=== PATIENT | female | born 1960 | race Hispanic/Latino ===

== ENCOUNTER 2018-02-08 07:46 | Emergency (ER) | payer OTHER, SELFPAY ==
[2018-02-08 08:02] VITALS: BP 153/88; PULSE 70; RESP 16; TEMP 36.2; O2SAT 100; BMI 36.3
--- NOTE | 2018-02-08 08:11 | ED.FEMALEGU ---
HPI - Female Genitourinary General Chief complaint: Vaginal Bleeding Stated complaint: vaginal bleeding Time Seen by Provider: 02/08/18 07:50 Source: patient Mode of arrival: ambulatory Limitations: no limitations History of Present Illness HPI Narrative: Pleasant 57-year-old female presents with her sister and chief complaint of painless vaginal bleeding over the past few days. She has not had a menstrual cycle in over a year and started again last Friday. She denies the passage of any large clots and states the bleeding is minimal and she notes that most with urinating. She denies any pain, other discharge or fever or chills. She denies dysuria, frequency or urgency. She has multiple sisters who went through menopause in her late 30s to early 40s. Patient did start thyroid meds few months ago but otherwise denies any new medications. She was evaluated at her primary care office on Friday and is hoping for 2nd opinion or clarification prior to leaving on a trip out of state later this week. She states she has only changing about 1 pad per day. MD Complaint: vaginal bleeding Onset (ago): day(s) Severity: mild Exacerbating factors: none Urinary symptoms: Hematuria Vaginal discharge: dark blood Associated symptoms: denies other symptoms Related Data Home Medications Medication Instructions Recorded Confirmed levothyroxine 75 mcg PO DAILY 02/08/18 02/08/18 Allergies Allergy/AdvReac Type Severity Reaction Status Date / Time No Known Drug Allergies Allergy Verified 02/08/18 08:58 Review of Systems Review of Systems All systems reviewed & are unremarkable except as noted in HPI and below Constitutional Denies chills, Denies fever(s), Denies lethargy and Denies weakness Eyes Denies change in vision, Denies eye discharge, Denies irritation and Denies loss of vision ENT Ears, Nose, Mouth, and Throat: Denies change in voice, Denies neck pain and Denies sore throat Cardiovascular Denies chest pain, Denies irregular heart rhythm, Denies lightheadedness, Denies palpitations, Denies dyspnea, Denies dyspnea on exertion and Denies orthopnea Respiratory Denies cough, Denies dyspnea, Denies dyspnea on exertion and Denies wheezing Gastrointestinal Gastrointestinal: Denies abdominal pain, Denies change in bowel habits, Denies diarrhea, Denies nausea and Denies vomiting Genitourinary Reports abnormal vaginal bleeding, Denies hematuria, Denies flank pain, Denies urinary incontinence and Denies urinary urgency Musculoskeletal Denies neck pain Integumentary/Breasts Denies pruritus, Denies erythema, Denies rash and Denies wounds Neurologic Denies confusion, Denies loss of vision and Denies weakness Psychiatric Denies anxiety, Denies confusion, Denies depression, Denies homicidal ideation and Denies suicidal ideation Endocrine Denies palpitations Hematologic/Lymphatic Denies easy bruising Allergic/Immunologic Denies wheezing [facility] Social History Smoking Status: Never smoker Exam Narrative Exam Narrative: GEN: AOx3 and in mild distress EYES: Pupils are equal, round, and reactive to light and accommodation. Extraoccular muscles are intact bilaterally. There is no subconjunctival hemorrhage or exudate. CHEST: Lungs are clear to auscultation bilaterally and free of wheezes, rales, or rhonchi. Heart rate is regular rhythm, there are no murmurs, clicks, rubs, or gallops. There is no chest wall tenderness. ABD: Abdomen is soft and nontender. There is no guarding or rebound. Bowel sounds are normal in all 4 quadrants. There is no mass or organomegaly. PELVIC: Performed with patient's permission and female nursing title clerk automobile at the bedside. Minimal dark bleeding from a closed cervical os. No abnormal lesions, masses or trauma noted. Bimanual exam notes no masses or tenderness. EXT: Full painless ROM of all extremities with no loss of sensation or strength. SKIN: Warm, pink, and dry. No erythema or rash Initial Vital Signs Initial Vital Signs: Vital Signs Temperature 97.2 F L 02/08/18 08:02 Pulse Rate 70 02/08/18 08:02 Respiratory Rate 16 02/08/18 08:02 Blood Pressure 153/88 H 02/08/18 08:02 Pulse Oximetry 100 02/08/18 08:02 Course Orders Ordered: ED Orders 02/08/18 08:20 US pelvic complete Stat Vital Signs - 8 hr 02/08/18 08:02 02/08/18 08:43 Temperature 97.2 F L Pulse Rate 70 61 Respiratory Rate 16 17 Blood Pressure 153/88 H Blood Pressure [Right Arm] 109/73 Pulse Oximetry 100 96 [facility] - Female Genitourinary Medical Records Attestation: I reviewed the patient's medical records. Lab Data Attestation: I reviewed the patient's lab results. Imaging Data Pelvic US: Radiologist's impression: PROCEDURE: XR ANKLE RT MIN 3V INDICATIONS: ankle injury with Janet lift at [facility] TECHNIQUE: 3 views of the ankle were acquired. COMPARISON: None. FINDINGS: Bones are diffusely osteopenic. Vascular calcifications are noted. Internal fixation hardware along the medial and lateral malleolus are noted, without convincing evidence of acute hardware complication. A fracture lucency persists through the medial malleolus, which appears chronic. No acute fracture or dislocation is identified. IMPRESSION: #1. Right medial and lateral malleoli internal fixation hardware without convincing evidence of acute hardware complication. Chronic-appearing medial malleolar fracture lucency persists. #2. No convincing acute fracture or dislocation of the right ankle. Dictated by: Shane Brice M.D. on 02/08/2018 at 9:53 Approved by: Shane Brice M.D. on 02/08/2018 at 9:55 Discharge Plan Departure Patient Disposition: Home, Self-Care Clinical Impression: Vaginal bleeding, Uterine polyp Discharge Date/Time: 02/08/18 10:26 Interventions: ED Discharge Assessment Last Done: 02/08/18 10:26 Instructions: DI for Vaginal Bleeding Activity Restrictions/Additional Instructions: *You have been diagnosed with [ abnormal vaginal bleeding ] *What to do: *Take medications as directed *Follow up with your primary care provider or OB, call for an appointment. Let them know you were seen in the Emergency Department and that we ask that you be seen in follow up *Return to ER if you should have any new, worsening or concerning symptoms, such as [increased bleeding, such as more than 1 pad per hour for multiple hours. Pain or other bothersome symptoms ] Prescriptions: No Action levothyroxine 75 mcg Tablet 75 mcg PO DAILY RF: 0 Referrals: Vanessa Jimenez MD [Physician] -
--- NOTE | 2018-02-08 08:15 | ED_ITS ---
HPI - Female Genitourinary General Chief complaint: Vaginal Bleeding Stated complaint: vaginal bleeding Time Seen by Provider: 02/08/18 07:50 Source: patient Mode of arrival: ambulatory Limitations: no limitations History of Present Illness HPI Narrative: Pleasant 57-year-old female presents with her sister and chief complaint of painless vaginal bleeding over the past few days. She has not had a menstrual cycle in over a year and started again last Friday. She denies the passage of any large clots and states the bleeding is minimal and she notes that most with urinating. She denies any pain, other discharge or fever or chills. She denies dysuria, frequency or urgency. She has multiple sisters who went through menopause in her late 30s to early 40s. Patient did start thyroid meds few months ago but otherwise denies any new medications. She was evaluated at her primary care office on Friday and is hoping for 2nd opinion or clarification prior to leaving on a trip out of state later this week. She states she has only changing about 1 pad per day. MD Complaint: vaginal bleeding Onset (ago): day(s) Severity: mild Exacerbating factors: none Urinary symptoms: Hematuria Vaginal discharge: dark blood Associated symptoms: denies other symptoms Related Data Home Medications Medication Instructions Recorded Confirmed levothyroxine 75 mcg PO DAILY 02/08/18 02/08/18 Allergies Allergy/AdvReac Type Severity Reaction Status Date / Time No Known Drug Allergies Allergy Verified 02/08/18 08:58 Review of Systems Review of Systems All systems reviewed & are unremarkable except as noted in HPI and below Constitutional Denies chills, Denies fever(s), Denies lethargy and Denies weakness Eyes Denies change in vision, Denies eye discharge, Denies irritation and Denies loss of vision ENT Ears, Nose, Mouth, and Throat: Denies change in voice, Denies neck pain and Denies sore throat Cardiovascular Denies chest pain, Denies irregular heart rhythm, Denies lightheadedness, Denies palpitations, Denies dyspnea, Denies dyspnea on exertion and Denies orthopnea Respiratory Denies cough, Denies dyspnea, Denies dyspnea on exertion and Denies wheezing Gastrointestinal Gastrointestinal: Denies abdominal pain, Denies change in bowel habits, Denies diarrhea, Denies nausea and Denies vomiting Genitourinary Reports abnormal vaginal bleeding, Denies hematuria, Denies flank pain, Denies urinary incontinence and Denies urinary urgency Musculoskeletal Denies neck pain Integumentary/Breasts Denies pruritus, Denies erythema, Denies rash and Denies wounds Neurologic Denies confusion, Denies loss of vision and Denies weakness Psychiatric Denies anxiety, Denies confusion, Denies depression, Denies homicidal ideation and Denies suicidal ideation Endocrine Denies palpitations Hematologic/Lymphatic Denies easy bruising Allergic/Immunologic Denies wheezing [facility] Social History Smoking Status: Never smoker Exam Narrative Exam Narrative: GEN: AOx3 and in mild distress EYES: Pupils are equal, round, and reactive to light and accommodation. Extraoccular muscles are intact bilaterally. There is no subconjunctival hemorrhage or exudate. CHEST: Lungs are clear to auscultation bilaterally and free of wheezes, rales, or rhonchi. Heart rate is regular rhythm, there are no murmurs, clicks, rubs, or gallops. There is no chest wall tenderness. ABD: Abdomen is soft and nontender. There is no guarding or rebound. Bowel sounds are normal in all 4 quadrants. There is no mass or organomegaly. PELVIC: Performed with patient's permission and female nursing manager game at the bedside. Minimal dark bleeding from a closed cervical os. No abnormal lesions, masses or trauma noted. Bimanual exam notes no masses or tenderness. EXT: Full painless ROM of all extremities with no loss of sensation or strength. SKIN: Warm, pink, and dry. No erythema or rash Initial Vital Signs Initial Vital Signs: Vital Signs Temperature 97.2 F L 02/08/18 08:02 Pulse Rate 70 02/08/18 08:02 Respiratory Rate 16 02/08/18 08:02 Blood Pressure 153/88 H 02/08/18 08:02 Pulse Oximetry 100 02/08/18 08:02 Course Orders Ordered: ED Orders 02/08/18 08:20 US pelvic complete Stat Vital Signs - 8 hr 02/08/18 08:02 02/08/18 08:43 Temperature 97.2 F L Pulse Rate 70 61 Respiratory Rate 16 17 Blood Pressure 153/88 H Blood Pressure [Right Arm] 109/73 Pulse Oximetry 100 96 [facility] - Female Genitourinary Medical Records Attestation: I reviewed the patient's medical records. Lab Data Attestation: I reviewed the patient's lab results. Imaging Data Pelvic US: Radiologist's impression: PROCEDURE: XR ANKLE RT MIN 3V INDICATIONS: ankle injury with Janet lift at [facility] TECHNIQUE: 3 views of the ankle were acquired. COMPARISON: None. FINDINGS: Bones are diffusely osteopenic. Vascular calcifications are noted. Internal fixation hardware along the medial and lateral malleolus are noted, without convincing evidence of acute hardware complication. A fracture lucency persists through the medial malleolus, which appears chronic. No acute fracture or dislocation is identified. IMPRESSION: #1. Right medial and lateral malleoli internal fixation hardware without convincing evidence of acute hardware complication. Chronic-appearing medial malleolar fracture lucency persists. #2. No convincing acute fracture or dislocation of the right ankle. Dictated by: Shane Brice M.D. on 02/08/2018 at 9:53 Approved by: Shane Brice M.D. on 02/08/2018 at 9:55 Discharge Plan Departure Patient Disposition: Home, Self-Care Clinical Impression: Vaginal bleeding, Uterine polyp Discharge Date/Time: 02/08/18 10:26 Interventions: ED Discharge Assessment Last Done: 02/08/18 10:26 Instructions: DI for Vaginal Bleeding Activity Restrictions/Additional Instructions: *You have been diagnosed with [ abnormal vaginal bleeding ] *What to do: *Take medications as directed *Follow up with your primary care provider or OB, call for an appointment. Let them know you were seen in the Emergency Department and that we ask that you be seen in follow up *Return to ER if you should have any new, worsening or concerning symptoms , such as [increased bleeding, such as more than 1 pad per hour for multiple hours. Pain or other bothersome symptoms ] Prescriptions: No Action levothyroxine 75 mcg Tablet 75 mcg PO DAILY RF: 0 Referrals: Vanessa Jimenez MD [Physician] -
--- NOTE | 2018-02-08 08:20 | DI.US.S_ITS ---
PROCEDURE: US PELVIC COMPLETE INDICATIONS: abnormal vaginal bleeding, hasn't had cycle in a year TECHNIQUE: Real-time scanning was performed of the pelvic organs, with image documentation. Additional endovaginal scanning was necessary due to incomplete visualization of the adnexal and endometrial structures by transabdominal scanning. COMPARISON: None. FINDINGS: Transabdominal scanning: Limited scanning through the kidneys shows no hydronephrosis. No pathologic free abdominal or pelvic fluid. Endovaginal scanning: Uterus: Uterus measures 11.1 x 5.4 x 3.4 cm. There is a 1.9 x 2.9 x 1.5 cm anterior right uterine intramural fibroid. Endometrial complex measures 5 mm. There is a 2.1 x 1.1 x 0.7 cm endometrial fluid collection. There is a small anterior endometrial echogenic focus that may represent a polyp measuring up to 0.6 cm in size. There are multiple nabothian cysts measuring up to 2.0 cm in size. Ovaries: Not visualized on this exam, obscured by overlying bowel gas. IMPRESSION: #1. 2.9 cm anterior right uterine fibroid. #2. 2.1 cm endometrial fluid collection with possible 0.6 cm endometrial polyp. Recommend follow pelvic ultrasound for further evaluation. Correlation with menstrual history recommended, as is a follow-up pelvic ultrasound with possible sampling as clinically warranted. #3. Ovaries were not visualized on this exam. These preliminary findings were discussed by the cellular tower climber with the ordering provider Dr. Edgar Sellers at 9:40 AM on 02/08/18. Dictated by: Shane Brice M.D. on 02/08/2018 at 9:56 Approved by: Shane Brice M.D. on 02/08/2018 at 10:02
--- NOTE | 2018-02-08 08:33 | PC.NURSE ---
patient ambulated to bathroom and voided. POC done No leukocytes just 3+ blood. MD aware. Ultrasound notified to come in. Patient very relieved after the pelvic exam.
[2018-02-08 08:43] VITALS: BP 109/73; PULSE 61; RESP 17; O2SAT 96
== END 2018-02-08 10:26 | disposition home or self-care (01) ==
PROVIDERS: Emergency Provider Emergency Medicine
DX: N93.9 Abnormal uterine and vaginal bleeding, unspecified (principal); N84.0 Polyp of corpus uteri
CPT/HCPCS: 76830; 76856; 81003; 99283; 99284

== ENCOUNTER 2018-03-19 08:01 | Day surgery (SDC) | payer OTHER, SELFPAY ==
[2018-03-19 08:28] VITALS: BP 112/78; PULSE 78; RESP 18; TEMP 36.2; O2SAT 97
[2018-03-19] MEDS: SODIUM CHLORIDE 0.9% 1,000 ML 200 ML IV (08:32)
[2018-03-19] MEDS: fentaNYL 250 MCG/5 ML INJ IV (09:51)
[2018-03-19] MEDS: MIDAZOLAM 5 MG/5 ML VIAL IV (09:52)
[2018-03-19 10:03] VITALS: BP 108/74; PULSE 66; RESP 16; TEMP 36.7; O2SAT 95
[2018-03-19 10:06] VITALS: BP 107/72; PULSE 70; RESP 10; O2SAT 98
--- NOTE | 2018-03-19 10:07 | PM.OP.1 ---
Operative Date/Time/Diagnoses Date of procedure: 03/19/18 Time of procedure: 10:07 Pre-op diagnosis: Screening Post-op diagnosis: same Procedure & Clinicians Procedure: Colonoscopy to the cecum Same procedure as scheduled: Yes Indications: No prior colonoscopy Surgeon: Belle Childress Anesthesia Type: Sedation (Versed 5 mg fentanyl 150 mcg) Operative Notes Findings: 1. Excellent prep 2. No polyps or mass lesions 3. No AV malformations 4. Mild sigmoid diverticulosis without inflammation 5. Grade 1 internal hemorrhoids 6. Normal colonoscopy for age Closure Type: not applicable Procedure in detail: After obtaining informed consent, the patient was brought to the GI suite and placed in the left lateral decubitus position on the examination table. After placement of appropriate monitors, the patient was given incremental doses of Versed and Fentanyl until an appropriate level of sedation was achieved. A time out was held per SCOAP protocol. A digital rectal examination was performed and did not reveal any masses or obstructing lesions. The colonoscope was gently passed into the patient's anus and the entire colon navigated to the level of the cecum with minimal difficulty. Once in the cecum, the scope was withdrawn being sure to go before and beyond all mucosal folds and prominences and get an excellent examination. The findings are noted above. At the level of the rectal vault, the scope was retroflexed and the internal anal canal was examined. The scope was straightened and air aspirated from the colon. The instrument was removed from the patient's body and the procedure was concluded. The patient was allowed to awaken from sedation without difficulty and taken to the post-anesthesia care unit in good condition. Total sedation time 23 min Total withdrawal time 8 min Complications: none Condition: stable Disposition: PACU Plan for aftercare: 1. Discharge to home 2. Plan for next colonoscopy in 10 years or as clinically indicated
--- NOTE | 2018-03-19 10:09 | PM.HP.1 ---
History of Present Illness Date Patient Seen: 03/19/18 Time Patient Seen: 10:09 Chief complaint: [id number] Narrative: Very pleasant 57-year-old lady here for her 1st screening colonoscopy. Denies any problems or symptoms related to function with GI tract. She reports that she was recently diagnosed with hypothyroidism and has been working very hard to be healthy and control her weight. Patient History Family & Social History Family History: Reviewed 03/19/18 by Belle Childress MD Tobacco & Substance use: Smoking Status Never smoker alcohol intake frequency holiday/special occasion Substance Use Type does not use Meds Home Medications Medication Instructions Recorded Confirmed Type levothyroxine 75 mcg PO DAILY 02/08/18 03/19/18 History Allergies Allergy/AdvReac Type Severity Reaction Status Date / Time No Known Drug Allergies Allergy Verified 02/08/18 08:58 Review of Systems Review of Systems All systems reviewed & are unremarkable except as noted in HPI and below Exam Vital Signs (past 8 hours): - 03/19/18 08:28 03/19/18 10:03 Temperature 97.2 F L 98.1 F Pulse Rate 78 66 Respiratory Rate 18 16 Blood Pressure 112/78 108/74 Pulse Oximetry 97 95 Oxygen Delivery Method Room Air Narrative Exam Narrative: Very pleasant well-nourished well-developed lady in no distress HEENT: Normocephalic and atraumatic, pupils equal round reactive to light accommodation with anicteric sclera Lungs: Clear bilaterally Heart: Regular rate and rhythm Abdomen: Soft, nontender, active bowel sounds Extremities: Warm well perfused Assessment & Plan Plan: Assessment/Plan Narrative: Very pleasant and healthy 57-year-old lady here for her 1st screening colonoscopy. We discussed the risks and benefits of the procedure the patient expressed a desire to complete it today
[2018-03-19 10:10] VITALS: BP 114/79; PULSE 69; RESP 15; TEMP 36.1; O2SAT 98
--- NOTE | 2018-03-19 10:16 | SUR.PHASEI ---
stable pacu stay
[2018-03-19 10:18] VITALS: BP 115/80; PULSE 67; RESP 16; TEMP 36.3; O2SAT 98
[2018-03-19 10:38] VITALS: BP 114/69; PULSE 69; RESP 16; TEMP 36.4; O2SAT 99
--- NOTE | 2018-03-19 10:46 | SUR.PHASEII ---
sister brought in , d/c instructions discussed, pt left when ready and left in stable condition.
== END 2018-03-19 10:37 | disposition home or self-care (01) ==
PROVIDERS: Visit Provider Surgery
PROC: 0DJD8ZZ Inspection of Lower Intestinal Tract, Via Natural or Artificial Opening Endoscopic (ICD-10-PCS; CPT 45378; principal; 2018-03-19 08:45)
DX: Z12.11 Encounter for screening for malignant neoplasm of colon (principal); K57.30 Diverticulosis of large intestine without perforation or abscess without bleeding; K64.0 First degree hemorrhoids; E03.9 Hypothyroidism, unspecified; Z79.899 Other long term (current) drug therapy
CPT/HCPCS: 45378; 99152; J2250; J3010

== ENCOUNTER 2019-07-14 13:29 | Day surgery (SDC) | payer OTHER, SELFPAY ==
[2019-07-14] VITALS (10 sets, daily range): BP systolic 113–135; BP diastolic 47–77; PULSE 70–102; RESP 12–20; TEMP 36–36.7; O2SAT 94–102; BMI 35.0
--- NOTE | 2019-07-14 16:15 | PM.PREOP ---
Pre-operative Note Interval Note History & Physical reviewed/Exam performed by Physician: Yes Changes to H&P: No
[2019-07-14] MEDS: LACTATED RINGERS 1,000 ML 42 ML IV (16:44)
--- NOTE | 2019-07-14 17:19 | PM.PREOP ---
Pre-operative Note Interval Note History & Physical reviewed/Exam performed by Physician: Yes Changes to H&P: No
[2019-07-14 18:20] LABS: Add Manual Diff / Slide Review NO; Basophils Absolute Auto 0 /uL (0-100); Basophils Percent Auto 0.4 % (0-2); Eosinophils Absolute Auto 100 /uL (0-450); Eosinophils Percent Auto 1.3 % (2-4); Hematocrit 37.4 % (36-46); Hemoglobin 12.4 g/dL (12.0-16.0); Lymphocytes Absolute Auto 2400 /uL (1100-4500); Lymphocytes Percent Auto 25.8 % (25-40); Mean Corpuscular HGB Conc 33.2 % (30-36); Mean Corpuscular Hemoglobin 28.4 PG (26-34); Mean Corpuscular Volume 85.5 fL (80-100); Monocytes Absolute Auto 600 /uL (0-900); Monocytes Percent Auto 6.9 % (3-14); Neutrophils Absolute Auto 6100 /uL (1500-7000); Neutrophils Percent Auto 65.6 % (50-75); Platelet Count 324 X10^3/uL (150-400); Red Blood Cell Count 4.37 X10^6/uL (4.0-5.2); Red Cell Distribution Width 14.2 % (11.6-14.8); White Blood Cell Count 9.4 X10^3/uL (4.5-11.0)
[2019-07-14 18:30] LABS: BUN Creatinine Ratio 17.1 (6-22); Blood Urea Nitrogen 12 mg/dL (7-17); Calcium 9.5 mg/dL (8.4-10.2); Carbon Dioxide 30 mmol/L (22-32); Chloride 104 mmol/L (98-107); Estimated Glomerular Filt Rate > 60.0 mL/min (>60); Glucose 88 mg/dL (70-100); HEMOLYSIS < 15 (0-50); Potassium 4.3 mmol/L (3.4-5.1); Sodium 141 mmol/L (137-145)
[2019-07-14] MEDS: CIPROFLOXACIN 400 MG/200 ML PIGGYBACK 200 MG IV (20:54)
[2019-07-14] MEDS: metroNIDAZOLE 500 MG/100 ML PIGGYBACK 100 MG IV (21:00)
--- NOTE | 2019-07-14 21:25 | SUR.OPER ---
Prone on padded OR bed, head in foam head support, gel chest rolls, gel pad under knees, pillow under lower legs, toes free of pressure, arms secured on padded arm boards at <90 degrees abduction. Safety belt at thigh.
--- NOTE | 2019-07-14 22:01 | PM.OP.1 ---
Operative Date/Time/Diagnoses Date of procedure: 07/14/19 Time of procedure: 22:01 Pre-op diagnosis: perianal abscess Post-op diagnosis: other (horesshoe abscess, anal fistula) Procedure & Clinicians Procedure: Drainage of perianal abscess, Perianal fistulectomy Same procedure as scheduled: Yes Indications: Perianal abscess, fistula, pain, drainage Surgeon: Rosa Calle Yes if Unassisted: Yes Anesthesia Type: General Operative Notes Findings: Perianal abscess on right anoderm, with associated fistula, and posterior horseshoe abscess cavity Specimen(s): none sent Estimated Blood Loss (mL): 1 Blood products transfused: none Procedure in detail: The patient was brought to the operating room. Sequential compression devices were placed on both legs and turned on. Appropriate perioperative antibiotics were given. General anesthesia was induced and the patient was intubated. She was then positioned in prone tiffanie-knife position with all bony prominences padded. Her buttocks were taped apart and the perianal area was prepped and draped in sterile fashion using Betadine prep. Surgical time-out was conducted. Local anesthetic was infiltrated using a 4 quadrant block with 0.25% Marcaine with epinephrine. On anorectal exam the patient was seen to have circumferential internal and external moderate grade 2-3 hemorrhoids. There were no thrombosed hemorrhoids, or bleeding hemorrhoids. A 3 o'clock position on the patient's right on the right lateral anoderm, there was a firm bulging area of anoderm with some purulent drainage coming out. I took probe and put it through the punctate opening in this abscess. It tunneled easily to the anal canal, and appeared relatively superficial. There was an additional tunneling towards the posterior midline and a horseshoe abscess cavity was found. The superficial fistula was unroofed and divided, and no muscle fibers were found within the divided tissue. A rough Ray-Beena gauze was used to debride chronic granulation tissue at the base of the fistula tunnel. Irrigation was used to wash out the abscess cavity and to seek any additional fistulas. No other fistulas were found and all of the irrigation came back out from the open wound at the fistula site. The edges of the wound were cauterized, and all of the chronic granulation tissue was debrided out and cauterized. This point there was good hemostasis. The wound was injected with additional 20 cc of 0.25% Marcaine with epi, for a total of 40 cc for the procedure. 10 cc of Exparel were also given locally at the site of the wound. A large Gelfoam was coated with dibucaine, rolled, and placed inside the anal canal. The Betadine was washed off, and 4 x 4 gauze was placed over the anal opening and secured in place with Medipore tape. The patient tolerated the procedure well. The patient was awakened from anesthesia and turned supine onto the [facility]. She was extubated, and transferred to the recovery area in stable condition. Needle sponge and instrument counts were correct x2 at the end of the procedure. Complications: none Post-operative Condition: stable Disposition: PACU
[2019-07-14] MEDS: BUPIVACAINE LIPOSOME 266 MG/20 ML VIAL INJ (22:03)
[2019-07-14] MEDS: BUPIVACAINE 0.25% W/ EPI (PF) 10 ML VIAL 20 ML INJ (22:03)
--- NOTE | 2019-07-14 22:03 | SUR.PHASEI ---
Turned patient over to assess dressing status. Dressing clean, dry and intact. No drainage noted.
[2019-07-14] MEDS: DIBUCAINE 1% OINT 28 GM 1 APPLIC TOP (22:05)
[2019-07-14] MEDS: SODIUM CHLORIDE 0.9% 1,000 ML 100 ML IV (22:37)
--- NOTE | 2019-07-14 22:44 | PC.NURSE ---
2230 - Pt to room from PACU. Awake, alert, feeling shaky and mildly tearful. Pt reports that she feels wet. Nancie-pad and inc pad with moderate amount of serous drainage. bulky drsg intact. Nancie-care and pad change. Pt reports feeling sore throat. Taking sips of water. Denies nausea. Oriented to room and routine. SCD's applied. Educated to safety and call light use. Call light in reach.
[2019-07-15 00:33] VITALS: BP 100/63; PULSE 74; O2SAT 96
[2019-07-15] MEDS: metroNIDAZOLE 500 MG/100 ML PIGGYBACK 100 MG IV (03:38)
[2019-07-15] MEDS: ACETAMINOPHEN 325 MG TABLET 650 MG PO (03:51)
[2019-07-15 03:56] VITALS: BP 101/44; PULSE 69; RESP 16; TEMP 36.2; O2SAT 95
--- NOTE | 2019-07-15 07:40 | P.PN_ITS ---
Subjective Subjective Date Patient Seen: 07/15/19 Time Patient Seen: 07:41 Interval history: No acute events overnight. Pt denies pain. Has not had a BM since surgery. Exam Vital Signs (past 8 hours): - 07/14/19 23:54 07/15/19 00:33 07/15/19 03:56 Temperature 97.1 F L Pulse Rate 70 74 69 Respiratory Rate 16 Blood Pressure 100/63 101/44 L Pulse Oximetry 94 96 95 Oxygen Delivery Method Room Air Oxygen Flow Rate 0 Narrative Exam Narrative: alert, oriented, comfortable normal respirations abdomen soft, nondistended perianal dressing in place Objective Labs Result Diagrams: 07/14/19 18:15 07/14/19 18:15 Labs: Laboratory Results - last 24 hr 07/14/19 07/14/19 07/14/19 18:15 18:15 22:30 WBC 9.4 RBC 4.37 Hgb 12.4 Hct 37.4 MCV 85.5 MCH 28.4 MCHC 33.2 RDW 14.2 Plt Count 324 Neut % (Auto) 65.6 Lymph % (Auto) 25.8 [place] % (Auto) 6.9 Eos % (Auto) 1.3 L Baso % (Auto) 0.4 Neut # (Auto) 6100 Lymph # (Auto) 2400 [place] # (Auto) 600 Eos # (Auto) 100 Baso # (Auto) 0 Sodium 141 Potassium 4.3 Chloride 104 Carbon Dioxide 30 BUN 12 Creatinine 0.70 Estimated GFR > 60.0 BUN/Creatinine Ratio 17.1 Glucose 88 Calcium 9.5 Nasal Screen MRSA (PCR) Negative for mrsa Assessment & Plan Assessment and plan (1) Perianal abscess: Current visit: No Status: Acute Assessment & Plan narrative: 59 yo woman POD#1 s/p drainage of abscess and unroofing of superficial fistula. Plan: Discharge home with home meds, pain meds, bowel regimen, and wound care instr uctions. Time Spent With Patient Time with patient: Greater than 35 minutes Quality VTE Deep Vein Thrombosis/Pulmonary Embolism Present on Admission: No
[2019-07-15 07:53] VITALS: BP 104/76; PULSE 66; RESP 18; TEMP 36.1; O2SAT 97
[2019-07-15] MEDS: PSYLLIUM HUSK 1 PACKET PO (08:31)
[2019-07-15] MEDS: CIPROFLOXACIN 400 MG/200 ML PIGGYBACK 200 MG IV (08:31)
[2019-07-15] MEDS: LEVOTHYROXINE 75 MCG TABLET PO (08:31)
[2019-07-15] MEDS: IBUPROFEN 400 MG TABLET PO (08:33)
[2019-07-15] MEDS: DOCUSATE 100 MG CAPSULE PO (08:33)
[2019-07-15 08:58] VITALS: PULSE 80; O2SAT 97
--- NOTE | 2019-07-15 09:23 | CM.DANOTE ---
Addendum entered by Radha Saenz LPN 07/15/19 10:37: A check in after Team Rounds shows that pt and her went over all final d/c paperwork from Dr Lynn with [facility] and she did d/c to home at about 1020. No d/c needs for CM dept were identified by the care team members. Original Note: Discharge Planning/Care Management DCP: assessment: case received, EMR reviewed. Pt is a 59 year old female who admitted yesterday for and I&D of jose-rectal abscess: post of dx: superficial fistula/deep horseshoe abscess. Dr. Lynn was here early this morning and has written d/c orders for home. Checked in with [facility] in prep for Rounds re ? need for a communication instructor consult. She states that she would be going over the dietary recommendations with pt and then expected that she would leave shortly after. P: check in after Rounds if pt still here and follow prn for any d/c needs. CM Discharge Assessment Start: 07/15/19 09:22 Freq: Status: Active Protocol: Document 07/15/19 09:22 ITV (Rec: 07/15/19 09:23 ITV [id number]) Discharge Planning Assessment Advance Directives? No History Provided By Medical Record Prior Living Arrangements House Household Members spouse Independent with ADL's Yes Is patient alert and oriented? Yes Review Status In Process
--- NOTE | 2019-07-15 10:23 | PC.NURSE ---
Pt d/c'ing to home per MD order. Provided d/c packet, educational materials, and verbal teaching re disease process, incision care, medications, rxs, side effects, precautions, s/s of post op wound infx, when/how to notify MD with concerns, when to seek emergency medical tx. Pt and both present for teaching. Both verbalize understanding. PIV removed with cath tip intact. All belongings gathered and given to pt. Pt dressed herself and ambulated independently with steady gait in NAD with all belongings to POV escorted by BARREL LINE OPERATOR at 1023.
== END 2019-07-15 10:23 | disposition home or self-care (01) ==
LOC: OR 14:07 → ICU 22:23
PROVIDERS: PCP Physician Assistant Medical; Visit Provider Surgery
PROC: (CPT 46040; principal; 2019-07-14 18:15)
DX: K60.5 Anorectal fistula (principal); K64.1 Second degree hemorrhoids; E03.9 Hypothyroidism, unspecified
CPT/HCPCS: 46060; 36415; 80048; 85025; 87797; 94760; 94762; C9290; J0330; J0744; J2250; J2405; J2704; J3010

== ENCOUNTER 2021-06-09 20:00 | Emergency (ER) | payer OTHER, SELFPAY ==
[2019-07-14 22:50] VITALS: BMI 35.0
[2021-06-09] VITALS (11 sets, daily range): BP systolic 102–142; BP diastolic 58–73; PULSE 69–89; RESP 12–34; TEMP 36.9; O2SAT 96–98; BMI 36.2
--- NOTE | 2021-06-09 20:05 | ED_ITS ---
HPI - General Adult General Chief complaint: Chest Pain Stated complaint: cough, chest pain Time Seen by Provider: 06/09/21 20:05 History of Present Illness HPI narrative: 61-year-old woman with a history of hypothyroidism I diagnosed with COVID approximately 3 weeks ago notes that she has not been febrile for 5 days however her cough continues to be very annoying. She is now having significant pain her left side under her left breast that is worse with coughing, movement and deep b reathing. She describes no palpitations, no nausea, vomiting, abdominal pain, diarrhea, headaches. Related Data Home Medications Medication Instructions Recorded Confirmed levothyroxine 75 mcg tablet 75 mcg PO DAILY 02/08/18 07/27/19 cholecalciferol (vitamin D3) 125 5,000 unit PO DAILY 07/14/19 07/27/19 mcg (5,000 unit) capsule sulfamethoxazole 800 1 tab PO Q12H #0 07/14/19 07/27/19 mg-trimethoprim 160 mg tablet Previous Rx's Medication Instructions Recorded docusate sodium 100 mg capsule 100 mg PO BID #60 cap 07/15/19 hydrocodone 2.5 mg-acetaminophen 1 tab PO Q4-6H PRN #30 tab 07/15/19 325 mg tablet lidocaine 5 % topical ointment 1 applictn TOP TID PRN #30 gram 07/15/19 oxycodone-acetaminophen 5 mg-325 1 tab PO Q6H PRN #10 tab 06/09/21 mg tablet Allergies Allergy/AdvReac Type Severity Reaction Status Date / Time amoxicillin [From Augmentin] Allergy Mild Verified 06/09/21 20:09 clavulanic acid Allergy Mild Verified 06/09/21 20:09 [From Augmentin] Review of Systems Review of Systems Narrative: Remainder of complete review of systems is otherwise unremarkable except for that included in the HPI. Patient History Medical History (Updated 06/09/21 @ 22:42 by Mary Scott MD) Anal abscess Hypothyroid Pneumonia due to COVID-19 virus Surgical History History of Hx of carpal tunnel repair Social History marital status: household members: spouse occupational status: employed Smoking Status: Never smoker alcohol intake: current substance use type: does not use Smoking Status: Never smoker alcohol intake frequency: holidays/special occasions only Substance Use Type: does not use Exam Narrative Exam Narrative: General: Healthy appearing, in no acute distress. Able to give a complete and coherent history. Well-nourished well-developed HEENT: Moist mucous membranes, normal sclera with reactive pupils, Neck: No JVD, supple Respiratory: Lungs are clear to auscultation, no wheezing no rales no rhonchi. Full and symmetrical air movement. No point tenderness on palpation along area of tenderness is appreciated. There are no skin changes in the area. Cardiac: Regular rate and rhythm no murmurs no bruits Abdomen: Soft, nontender, good bowel tones, no flank pain Skin: Warm and dry, no rashes Neurologic: Grossly neurologically intact with no obvious asymmetries or abnormalities Extremities: No trauma, well perfused Psych: Cooperative, appropriate insight and affect Initial Vital Signs Initial Vital Signs: Vital Signs Temperature 98.4 F 06/09/21 20:02 Pulse Rate 89 06/09/21 20:02 Respiratory Rate 14 06/09/21 20:02 Blood Pressure 139/71 06/09/21 20:02 Pulse Oximetry 97 06/09/21 20:02 Course Orders Ordered: ED Orders 06/09/21 20:09 XR chest 1V Stat EKG-12 Lead Stat 06/09/21 20:15 Complete Blood Count AUTO DIFF Stat Comprehensive Metabolic Panel Stat D Dimer Stat Lipase Stat Magnesium Stat Troponin & CK Cardiac Panel Stat 06/09/21 20:41 CT angio chest PE protocol Stat Discontinued Medications Ketorolac Tromethamine (Ketorolac 30 Mg/Ml Vial) 15 mg IV NOW ONE Stop: 06/09/21 20:10 Last Admin: 06/09/21 20:17 Dose: 15 mg Documented by: TEDDY Vital Signs Vital signs: Vital Signs - 8 hr 06/09/21 20:02 06/09/21 20:06 06/09/21 20:07 Temperature 98.4 F Pulse Rate 89 87 Respiratory Rate 14 Blood Pressure 139/71 139/71 Pulse Oximetry 97 98 06/09/21 20:14 06/09/21 20:30 06/09/21 21:00 Temperature Pulse Rate 78 78 79 Respiratory Rate 34 H 29 H 28 H Blood Pressure 130/67 114/66 137/67 Pulse Oximetry 97 96 96 06/09/21 21:11 06/09/21 21:30 06/09/21 21:31 Temperature Pulse Rate 82 78 80 Respiratory Rate 12 34 H 34 H Blood Pressure 131/60 131/60 Pulse Oximetry 97 97 96 06/09/21 22:00 Temperature Pulse Rate 76 Respiratory Rate 27 H Blood Pressure 142/73 H Pulse Oximetry 96 Medical Decision Making Lab Data Result diagrams: 06/09/21 20:15 06/09/21 20:15 Labs: Lab Results 06/09/21 06/09/21 06/09/21 Range/Units 20:15 20:15 20:15 WBC 9.3 (4.5-11.0) X10^3/uL RBC 4.16 (4.0-5.2) X10^6/uL Hgb 11.8 L (12.0-16.0) g/dL Hct 35.5 L (36-46) % MCV 85.3 (80-100) fL MCH 28.3 (26-34) PG MCHC 33.2 (30-36) % RDW 13.8 (11.6-14.8) % Plt Count 404 H (150-400) X10^3/uL Neut % (Auto) 52.1 (50-75) % Lymph % (Auto) 37.3 (25-40) % [place] % (Auto) 6.6 (3-14) % Eos % (Auto) 3.1 (2-4) % Baso % (Auto) 0.9 (0-2) % Neut # (Auto) 4800 (0817-2444) /uL Lymph # (Auto) 3500 (7278-3509) /uL [place] # (Auto) 600 (0-900) /uL Eos # (Auto) 300 (0-450) /uL Baso # (Auto) 100 (0-100) /uL D-Dimer 629 H (<230) ng/mL Sodium 142 (137-145) mmol/L Potassium 4.0 (3.4-5.1) mmol/L Chloride 106 (98-107) mmol/L Carbon Dioxide 28 (22-32) mmol/L BUN 16 (7-17) mg/dL Creatinine 0.63 (0.52-1.04) mg/dL Estimated GFR > 60.0 (>60) mL/min BUN/Creatinine Ratio 25.4 H (6-22) Glucose 105 H (70-100) mg/dL Calcium 9.2 (8.4-10.2) mg/dL Magnesium 2.3 (1.6-2.3) mg/dL Total Bilirubin 0.3 (0.2-1.3) mg/dL AST 34 (14-36) IU/L ALT 61 H (<35) IU/L Alkaline Phosphatase 117 (38-126) U/L Total Creatine Kinase 40 (30-135) U/L CK-MB (CK-2) TNP CK-MB (CK-2) Rel Index TNP Troponin I < 0.012 (0.01-0.034) ng/mL Total Protein 8.3 H (6.3-8.2) g/dL Albumin 4.1 (3.5-5.0) g/dL Globulin 4.2 H (1.7-4.1) g/dL Albumin/Globulin Ratio 1.0 (1.0-2.8) Lipase 246 (23-300) U/L Imaging Data CT scan - chest: Radiologist's Impression: FINDINGS:? Image quality:? Excellent.? ? Pulmonary arteries:? Pulmonary arteries are normal in size, and demonstrate no intraluminal filling defects to suggest central pulmonary embolism.? ? Lungs and pleura:? There are numerous scattered patchy/ill-defined ground-glass and consolidative opacities seen throughout the bilateral hemithoraces with a slight lower lobe predominance.? No pleural effusions or pneumothorax.? No septal thickening or nodularity.? No cavitary lesions.? Central and peripheral airways are patent.? ? Mediastinum:? Heart size is normal, without pericardial effusion.? No mediastinal or hilar adenopathy.? Thoracic aorta is normal in caliber and enhancement.? Esop hagus is normal in caliber, without hiatal hernia.? No evidence for acute right-sided heart strain. ? Bones and chest wall:? No suspicious bony lesions.? Ribs and thoracic spine appear intact throughout.? Thyroid gland is unremarkable.? No axillary or supraclavicular adenopathy.? ? Abdomen:? Visualized upper abdominal solid organs appear normal in the early arterial phase of enhancement.? Incidental note of 2.5 x 2.2 cm fat attenuation right adrenal nodule which is compatible with an adrenal adenoma.? ? IMPRESSION:? ? 1. No acute pulmonary emboli.? No acute right-sided heart strain. ? 2. Numerous scattered bilateral patchy/ill-defined ground-glass and consolidative opacities compatible with multifocal pneumonia given reported history of COVID- 19 infection.? Recommend short interval follow-up in 3 months to document resolution of findings. ? 3. Incidental note of a 2.5 cm right adrenal adenoma.? No further imaging evaluation required.? ? ? Dictated by: Dylan Beck M.D. on 06/09/2021 at 21:18 ? ? ECG Data Interpretation: Sinus rhythm at a rate of 77 Normal intervals, normal axis No acute ischemic changes MDM Narrative Medical decision making narrative: 61-year-old woman with resolving COVID-19 pneumonia symptoms now with likely pleuritic chest pain. D-dimer was slightly elevated and CT scan of the chest revealed no consolidated findings or pulmonary emboli. No evidence of acute coronary syndrome, no pneumothorax. It is possible that she simply has a pulled muscle in the area from her cough however clinical exam does not support that as completely. At this point her symptoms from COVID are significantly improving, she is given a small prescription for Percocet to help suppress the cough and help with the pleuritic chest pain. She will continue with nonsteroidals as well. Questions are answered and patient is safe for home discharge Discharge Plan Departure Patient Disposition: Home Clinical Impression: Pleurisy, Pneumonia due to COVID-19 virus Instructions: Pleurisy Activity Restrictions/Additional Instructions: Thank you for coming in today You are healing after your COVID-19 pneumonia. It will continue to take time. You do not have a blood clot, bacterial infection, collapsed lung or a heart attack to explain the pain in your left chest. I suspect that this is related to pleuritic(inflammation around your lung) pain. It may also be related to a pulled muscle in that area from all of her coughing. For both of these, the treatment is the same Using 400 mg of ibuprofen (2 [id number] pills) and 1 Tylenol every 6 hours can be very helpful in controlling pain. For severe pain you can use 400 mg of ibuprofen and 1 Percocet. You may find that half a Percocet is effective in controlling her cough as well. A prescription for Percocet was electronically transmitted to [facility] in [place]. If you do choose to use the Percocet, please make sure you are drinking plenty of water and using a stool softener as narcotics always cause constipation. If you have worsening pain, new symptoms or other issues, please feel free to return to the ER Prescriptions: New oxycodone-acetaminophen 5-325 mg tablet 1 tab PO Q6H PRN (Reason: pain) Qty: 10 0RF No Action cholecalciferol (vitamin D3) 5,000 unit capsule 5,000 unit PO DAILY 0RF levothyroxine 75 mcg Tablet 75 mcg PO DAILY 0RF sulfamethoxazole-trimethoprim 800-160 mg Tablet 1 tab PO Q12H Qty: 0 0RF Rx Instructions: Take every 12 hours hydrocodone-acetaminophen 2.5-325 mg tablet 1 tab PO Q4-6H PRN (Reason: post surgical pain) Qty: 30 0RF Rx Instructions: you may take 1/4 to 1/2 tab as needed for post operative pain lidocaine 5 % ointment 1 applictn TOP TID PRN (Reason: anal pain) Qty: 30 0RF Rx Instructions: apply pea sized amount to surgical wound as needed for pain and to keep it lubricated docusate sodium 100 mg capsule 100 mg PO BID Qty: 60 0RF Rx Instructions: hold if having loose stool, otherwise take twice daily Referrals: Claudia Ely PA-C [Primary Care Provider] -
--- NOTE | 2021-06-09 20:09 | DI.RAD.S_ITS ---
PROCEDURE: XR CHEST 1V INDICATIONS: chest pain TECHNIQUE: One view of the chest was acquired. COMPARISON: None. FINDINGS: Surgical changes and devices: None. Lungs and pleura: Patchy bilateral mid and lower lung zone airspace opacities. No pleural effusions or pneumothorax. Mediastinum: Mediastinal contours appear normal. Heart size is normal. Bones and chest wall: No suspicious bony lesions. Overlying soft tissues appear unremarkable. IMPRESSION: Patchy bilateral mid and lower lung zone airspace opacities likely representing pneumonia. Macro resolution Dictated by: Dylan Beck M.D. on 06/09/2021 at 21:14 Approved by: Dylan Beck M.D. on 06/09/2021 at 21:15
[2021-06-09] MEDS: KETOROLAC 30 MG/ML VIAL 15 MG IV (20:17)
[2021-06-09 20:22] LABS: Add Manual Diff / Slide Review NO; Basophils Absolute Auto 100 /uL (0-100); Basophils Percent Auto 0.9 % (0-2); Eosinophils Absolute Auto 300 /uL (0-450); Eosinophils Percent Auto 3.1 % (2-4); Hematocrit 35.5 % (36-46); Hemoglobin 11.8 g/dL (12.0-16.0); Lymphocytes Absolute Auto 3500 /uL (1100-4500); Lymphocytes Percent Auto 37.3 % (25-40); Mean Corpuscular HGB Conc 33.2 % (30-36); Mean Corpuscular Hemoglobin 28.3 PG (26-34); Mean Corpuscular Volume 85.3 fL (80-100); Monocytes Absolute Auto 600 /uL (0-900); Monocytes Percent Auto 6.6 % (3-14); Neutrophils Absolute Auto 4800 /uL (1500-7000); Neutrophils Percent Auto 52.1 % (50-75); Platelet Count 404 X10^3/uL (150-400); Red Blood Cell Count 4.16 X10^6/uL (4.0-5.2); Red Cell Distribution Width 13.8 % (11.6-14.8); White Blood Cell Count 9.3 X10^3/uL (4.5-11.0)
[2021-06-09 20:33] LABS: D Dimer 629 ng/mL (<230)
[2021-06-09 20:34] LABS: Alanine Aminotransferase 61 IU/L (<35); Albumin 4.1 g/dL (3.5-5.0); Alkaline Phosphatase 117 U/L (38-126); Aspartate Aminotransferase 34 IU/L (14-36); BUN Creatinine Ratio 25.4 (6-22); Bilirubin Total 0.3 mg/dL (0.2-1.3); Blood Urea Nitrogen 16 mg/dL (7-17); Calcium 9.2 mg/dL (8.4-10.2); Carbon Dioxide 28 mmol/L (22-32); Chloride 106 mmol/L (98-107); Creatine Kinase 40 U/L (30-135); Estimated Glomerular Filt Rate > 60.0 mL/min (>60); Globulin 4.2 g/dL (1.7-4.1); Glucose 105 mg/dL (70-100); HEMOLYSIS < 15 (0-50); Lipase 246 U/L (23-300); Magnesium 2.3 mg/dL (1.6-2.3); Sodium 142 mmol/L (137-145); Total Protein 8.3 g/dL (6.3-8.2)
--- NOTE | 2021-06-09 20:41 | DI.CT.S_ITS ---
PROCEDURE: CT ANGIO CHEST PE PROTOCOL INDICATIONS: Left chest pain, post covid, getting worse, elevated d dimer TECHNIQUE: After the administration of intravenous contrast, 2 mm thick sections acquired from the pulmonary apices to the posterior costophrenic angles. 3-dimensional maximum intensity projection (MIP) coronal and sagittal reformats were then acquired through the thorax. For radiation dose reduction, the following was used: automated exposure control, adjustment of mA and/or kV according to patient size. COMPARISON: None. FINDINGS: Image quality: Excellent. Pulmonary arteries: Pulmonary arteries are normal in size, and demonstrate no intraluminal filling defects to suggest central pulmonary embolism. Lungs and pleura: There are numerous scattered patchy/ill-defined ground-glass and consolidative opacities seen throughout the bilateral hemithoraces with a slight lower lobe predominance. No pleural effusions or pneumothorax. No septal thickening or nodularity. No cavitary lesions. Central and peripheral airways are patent. Mediastinum: Heart size is normal, without pericardial effusion. No mediastinal or hilar adenopathy. Thoracic aorta is normal in caliber and enhancement. Esophagus is normal in caliber, without hiatal hernia. No evidence for acute right-sided heart strain. Bones and chest wall: No suspicious bony lesions. Ribs and thoracic spine appear intact throughout. Thyroid gland is unremarkable. No axillary or supraclavicular adenopathy. Abdomen: Visualized upper abdominal solid organs appear normal in the early arterial phase of enhancement. Incidental note of 2.5 x 2.2 cm fat attenuation right adrenal nodule which is compatible with an adrenal adenoma. IMPRESSION: 1. No acute pulmonary emboli. No acute right-sided heart strain. 2. Numerous scattered bilateral patchy/ill-defined ground-glass and consolidative opacities compatible with multifocal pneumonia given reported history of COVID-19 infection. Recommend short interval follow-up in 3 months to document resolution of findings. 3. Incidental note of a 2.5 cm right adrenal adenoma. No further imaging evaluation required. Dictated by: Dylan Beck M.D. on 06/09/2021 at 21:18 Approved by: Dylan Beck M.D. on 06/09/2021 at 21:24
[2021-06-09 20:45] LABS: Troponin I < 0.012 ng/mL (0.01-0.034)
== END 2021-06-09 22:52 | disposition home or self-care (01) ==
PROVIDERS: Emergency Provider Emergency Medicine; PCP Physician Assistant Medical
DX: R09.1 Pleurisy (principal); Z86.16 Personal history of COVID-19
CPT/HCPCS: 36415; 71045; 71275; 80053; 82550; 83690; 83735; 84484; 85025; 85379; 93005; 93010; 96374; 99284; J1885

== ENCOUNTER 2022-11-30 15:22 | Emergency (ER) | payer OTHER, SELFPAY ==
[2019-07-14 22:50] VITALS: BMI 35.0
[2022-11-30 15:34] VITALS: BP 120/72; PULSE 78; RESP 16; TEMP 36.3; O2SAT 99; BMI 36.8
[2022-11-30 20:00] LABS: Bacteria Urine None Seen; Culture Indicated Urine Cult Not Indicated; RBC Urine None Seen (0-5/HPF); Squamous Epithelial Cell Urine 0-1 /HPF (0-5/HPF); WBC Urine 0-1/HPF (0-5/HPF)
--- NOTE | 2022-11-30 20:50 | DI.US.S_ITS ---
PROCEDURE: US ABDOMEN LIMITED INDICATIONS: RUQ pain, radiation to the back TECHNIQUE: Real-time focused scanning was performed of the abdomen, with image documentation. COMPARISON: None. FINDINGS: The liver is normal in size but has increased echotexture consistent with fatty infiltration. The gallbladder contains a 1.8 cm mobile gallstone, but the gallbladder wall is normal in thickness and there is no adjacent free fluid. Tenderness during sonographic palpation over the gallbladder is present. The bile ducts are mildly enlarged in caliber at 5.3 mm. The pancreas was poorly visualized due to overlying bowel gas. IMPRESSION: 1.8 cm mobile gallstone within the gallbladder lumen but no gallbladder wall thickening is associated. There is, however, tenderness during sonographic palpation over the gallbladder. Also, the common bile duct is mildly dilated at 5.3 mm, with the upper limits of normal 3 mm. Mild acute cholecystitis may be present. Dictated by: Hebert Padilla M.D. on 11/30/2022 at 21:59 Approved by: Hebert Padilla M.D. on 11/30/2022 at 22:02
[2022-11-30 21:11] LABS: Add Manual Diff / Slide Review NO; Basophils Absolute Auto 0 /uL (0-100); Basophils Percent Auto 0.4 % (0-2); Eosinophils Absolute Auto 200 /uL (0-450); Eosinophils Percent Auto 2.1 % (2-4); Hematocrit 35.5 % (36-46); Lymphocytes Absolute Auto 3000 /uL (1100-4500); Lymphocytes Percent Auto 32.9 % (25-40); Mean Corpuscular HGB Conc 33.7 % (30-36); Monocytes Absolute Auto 600 /uL (0-900); Monocytes Percent Auto 6.5 % (3-14); Neutrophils Absolute Auto 5200 /uL (1500-7000); Neutrophils Percent Auto 58.1 % (50-75); Platelet Count 295 X10^3/uL (150-400); Red Blood Cell Count 4.13 X10^6/uL (4.0-5.2); Red Cell Distribution Width 14.2 % (11.6-14.8)
[2022-11-30 21:20] LABS: Alanine Aminotransferase 37 IU/L (<35); Albumin 4.3 g/dL (3.5-5.0); Albumin Globulin Ratio 0.8 (1.0-2.8); Alkaline Phosphatase 105 U/L (38-126); Aspartate Aminotransferase 28 IU/L (14-36); BUN Creatinine Ratio 23.3 (6-22); Bilirubin Total 0.3 mg/dL (0.2-1.3); Blood Urea Nitrogen 14 mg/dL (7-17); Calcium 9.1 mg/dL (8.4-10.2); Carbon Dioxide 29 mmol/L (22-32); Chloride 104 mmol/L (98-107); Estimated Glomerular Filt Rate > 60 mL/min (>60); Globulin 5.1 g/dL (1.7-4.1); Glucose 104 mg/dL (80-110); HEMOLYSIS < 15 (0-50); Lipase 196 U/L (23-300); Sodium 138 mmol/L (137-145); Total Protein 9.4 g/dL (6.3-8.2)
--- NOTE | 2022-11-30 21:48 | ED_ITS ---
HPI - Back Pain/Injury General Chief Complaint: Back Pain/Injury Stated Complaint: Rt side and back pain Time Seen by Provider: 11/30/22 20:23 Source: patient History of Present Illness HPI Narrative: 62-year-old female nonsmoker with noncontributory medical history presents with her in the chief complaint of right flank and back pain for the better part of a week. She denies any obvious or known injury or trauma. She states it seems to be largely present and unaffected by eating or drinking. It is worse when she moves and improves with rest. She denies any recent runny nose, sore throat or cough. Related Data Home Medications Medication Instructions Recorded Confirmed levothyroxine 75 mcg tablet 75 mcg PO DAILY 02/08/18 07/27/19 cholecalciferol (vitamin D3) 125 5,000 unit PO DAILY 07/14/19 07/27/19 mcg (5,000 unit) capsule sulfamethoxazole 800 1 tab PO Q12H infection ##0 07/14/19 07/27/19 mg-trimethoprim 160 mg tablet Previous Rx's Medication Instructions Recorded docusate sodium 100 mg capsule 100 mg PO BID constipation #60 caps 07/15/19 hydrocodone 2.5 mg-acetaminophen 1 tab PO Q4-6H PRN post surgical 07/15/19 325 mg tablet pain #30 tabs lidocaine 5 % topical ointment 1 applictn topical TID PRN anal 07/15/19 pain #30 grams oxycodone-acetaminophen 5 mg-325 1 tab PO Q6H PRN pain #10 tabs 06/09/21 mg tablet Allergies Allergy/AdvReac Type Severity Reaction Status Date / Time clavulanic acid Allergy Mild Verified 06/09/21 20:09 [From Augmentin] Review of Systems Review of Systems Narrative: GENERAL: Denies chills, fatigue, malaise, fever, sweats. HEENT: Denies sinus pain, ear pain, sore throat, difficulty swallowing, dizziness. RESPIRATORY: Denies dyspnea, cough, wheezing, hemoptysis, sputum. CARDIOVASCULAR: Denies chest pain, palpitations, orthopnea, edema, GASTROINTESTINAL: See HPI : Denies dysuria, frequency, incontinence, hematuria, urinary retention. MUSCULOSKELETAL: See HPI SKIN: Denies rash, skin lesions, or other NEUROLOGIC: Denies weakness, headache, numbness, change in speech, confusion, seizures, incoordination. PSYCHIATRIC: No concerning psychosocial issues. 12 point review of systems is negative except for those stated above Patient History Medical History Anal abscess Hypothyroid Pneumonia due to COVID-19 virus Surgical History History of Hx of carpal tunnel repair Social History marital status: household members: spouse occupational status: employed Smoking Status: Never smoker alcohol intake: current substance use type: does not use Smoking Status: Never smoker alcohol intake frequency: holidays/special occasions only Substance Use Type: does not use Exam Narrative Exam Narrative: GENERAL: [62] year old patient appears stated age. Well-developed patient, in mild distress. HEAD: Atraumatic. Normocephalic. EYES: Pupils equal round and reactive. Extraocular motions intact. No scleral icterus. No injection or drainage. ENT: Nose without bleeding, purulent drainage. Throat without erythema, tonsillar hypertrophy or exudate. Airway patent. NECK: Trachea midline. Non tender CARDIOVASCULAR: Regular rate and rhythm without murmurs, gallops, or rubs. RESPIRATORY: Clear to auscultation. Breath sounds equal bilaterally. No wheezes, rales, or rhonchi. GASTROINTESTINAL: Abdomen soft, tender in the right upper quadrant nondistended. EXTREMITIES: No edema or joint tenderness. BACK: Nontender without deformity or crepitance. No flank tenderness. NEURO: AOx3. SKIN: No rash or erythema of visible areas Initial Vital Signs Initial Vital Signs: Vital Signs Temperature 97.3 F L 11/30/22 15:34 Pulse Rate 78 11/30/22 15:34 Respiratory Rate 16 11/30/22 15:34 Blood Pressure 120/72 11/30/22 15:34 Pulse Oximetry 99 11/30/22 15:34 Oxygen Delivery Method Room Air 11/30/22 15:34 Course Orders Ordered: ED Orders 11/30/22 20:50 US abdomen limited Stat 11/30/22 21:00 Complete Blood Count AUTO DIFF Stat Comprehensive Metabolic Panel Stat Lipase Stat Discontinued Medications Hydrocodone Bitart/Acetaminophen (Hydrocodone/Acet 5/325 Prepack) 1 bottle MISC SEEINSTR ONE Stop: 11/30/22 23:01 Last Admin: 11/30/22 23:15 Dose: 1 bottle Documented By: LOLITA Ondansetron HCl (Ondansetron 4 Mg Odt Prepack) 1 bottle MISC SEEINSTR ONE Stop: 11/30/22 23:01 Last Admin: 11/30/22 23:15 Dose: 1 bottle Documented By: LOLITA Consultations Consultation #1: Discussed with on-call surgeon, Dr. LÓPEZ. We have reviewed the clinical course as well as labs and ultrasound findings. She recommends discharge with pain control, recommendation for the use of low-fat diet, typical return precautions and Vital Signs Vital signs: Vital Signs - 8 hr 11/30/22 22:45 Pulse Rate 67 Respiratory Rate 16 Blood Pressure 149/77 H Pulse Oximetry 98 Oxygen Delivery Method Room Air MDM - Back Pain/Injury Lab Data 11/30/22 21:00 11/30/22 21:00 Labs: Lab Results 11/30/22 11/30/22 11/30/22 Range/Units 19:30 21:00 21:00 WBC 9.0 (4.5-11.0) X10^3/uL RBC 4.13 (4.0-5.2) X10^6/uL Hgb 12.0 (12.0-16.0) g/dL Hct 35.5 L (36-46) % MCV 86.0 (80-100) fL MCH 29.0 (26-34) PG MCHC 33.7 (30-36) % RDW 14.2 (11.6-14.8) % Plt Count 295 (150-400) X10^3/uL Neut % (Auto) 58.1 (50-75) % Lymph % (Auto) 32.9 (25-40) % [place] % (Auto) 6.5 (3-14) % Eos % (Auto) 2.1 (2-4) % Baso % (Auto) 0.4 (0-2) % Neut # (Auto) 5200 (6143-5549) /uL Lymph # (Auto) 3000 (6106-8892) /uL [place] # (Auto) 600 (0-900) /uL Eos # (Auto) 200 (0-450) /uL Baso # (Auto) 0 (0-100) /uL Sodium 138 (137-145) mmol/L Potassium 4.0 (3.4-5.1) mmol/L Chloride 104 (98-107) mmol/L Carbon Dioxide 29 (22-32) mmol/L BUN 14 (7-17) mg/dL Creatinine 0.60 (0.52-1.04) mg/dL Estimated GFR > 60 (>60) mL/min BUN/Creatinine Ratio 23.3 H (6-22) Glucose 104 (80-110) mg/dL Calcium 9.1 (8.4-10.2) mg/dL Total Bilirubin 0.3 (0.2-1.3) mg/dL AST 28 (14-36) IU/L ALT 37 H (<35) IU/L Alkaline Phosphatase 105 (38-126) U/L Total Protein 9.4 H (6.3-8.2) g/dL Albumin 4.3 (3.5-5.0) g/dL Globulin 5.1 H (1.7-4.1) g/dL Albumin/Globulin Ratio 0.8 L (1.0-2.8) Lipase 196 (23-300) U/L Urine RBC None seen (0-5/HPF) Urine WBC 0-1/hpf (0-5/HPF) Ur Squamous Epith Cells 0-1 /hpf (0-5/HPF) Urine Bacteria None seen (None) Ur Culture Indicated? Cult not indicated Urine Dip Bedside Urine Glucose Negative Bedside Urine Bilirubin - Negative Bedside Urine Ketone - Negative Urine Specific Gurley 1.020 Bedside Urine Occult Blood +/- Bedside Urine pH 6.0 Bedside Urine Protein - Negative Bedside Urine Urobilinogen - Negative Bedside Urine Nitrite - Negative Bedside Urine Leukocytes - Negative Esterase MDM Narrative Medical decision making narrative: [62] year old patient presents with right flank and upper quadrant pain Multiple etiologies for patient's symptoms considered including, but not limited to: [Musculoskeletal versus rib pain versus gallbladder versus other] Prior Charts reviewed in our EMR Primary Historian: patient Labs reviewed and interpreted by myself: No significant abnormalities, normal LFTs, bilirubin, no leukocytosis Imaging reviewed: Ultrasound demonstrates freely mobile gallstones without cholecystitis Patient's symptoms improved over duration of stay with above-stated therapies. Pain is well controlled, patient is tolerating orals, no indication for hospitalization at this time Findings and discharge diagnosis discussed with patient/family followed by verbalization of understanding Return precautions discussed with patient/family whom verbalize understanding of diagnosis and plan Discharge Plan Departure Patient Disposition: Home Clinical Impression: Biliary colic Instructions: DI for Gallstones Activity Restrictions/Additional Instructions: *You have been diagnosed with [abdominal pain likely due to your gallbladder] * As we discussed your history and physical exam as well as labs and imaging are very reassuring. There is no evidence of any severe diagnoses that would require a specific or immediate intervention. *What to do: *Please continue to take your regular medications as directed. [x ] New medication prescriptions sent to your pharmacy: [ [facility]] *Please follow up with your primary care provider in 2-3 days, call for an appointment. Let them know you were seen in the Emergency Department and that we ask that you be seen in follow up. We will electronically transmit a record of today's note if your PCP is in our system *Please consider a clear liquid diet for the next 24-48 hours and then slowly advance to regular as tolerated. Also, try to avoid alcohol, nicotine, caffeine, spicy, acidic or fatty foods as this may worsen your symptoms *If you do not have a primary care provider please contact the [facility] Resource line at [phone]. They will ask some questions about your medical history and help get you set up with a doctor in the community. *Return to Emergency Department if you should have any new, worsening or c oncerning symptoms, such as [fever greater than 101 F, shaking chills, worsening pain, persistent vomiting or other bothersome symptoms] Prescriptions: No Action cholecalciferol (vitamin D3) 5,000 unit capsule 5,000 unit PO DAILY levothyroxine 75 mcg Tablet 75 mcg PO DAILY sulfamethoxazole-trimethoprim 800-160 mg Tablet 1 tab PO Q12H Qty: 0 Rx Instructions: Take every 12 hours hydrocodone-acetaminophen 2.5-325 mg tablet 1 tab PO Q4-6H PRN (Reason: post surgical pain) Qty: 30 0RF Rx Instructions: you may take 1/4 to 1/2 tab as needed for post operative pain lidocaine 5 % ointment 1 applictn TOP TID PRN (Reason: anal pain) Qty: 30 0RF Rx Instructions: apply pea sized amount to surgical wound as needed for pain and to keep it lubricated docusate sodium 100 mg capsule 100 mg PO BID Qty: 60 0RF Rx Instructions: hold if having loose stool, otherwise take twice daily oxycodone-acetaminophen 5-325 mg tablet 1 tab PO Q6H PRN (Reason: pain) Qty: 10 0RF Referrals: Kelley Simpson MD [Physician] - Claudia Ely PA-C [Primary Care Provider] - Stand Alone Forms: Patient Portal/API
[2022-11-30 22:45] VITALS: BP 149/77; PULSE 67; RESP 16; O2SAT 98
[2022-11-30] MEDS: HYDROCODONE/ACET 5/325 PREPACK 1 BOTTLE MISC (23:15)
[2022-11-30] MEDS: ONDANSETRON 4 MG ODT PREPACK 1 BOTTLE MISC (23:15)
== END 2022-11-30 23:20 | disposition home or self-care (01) ==
PROVIDERS: Emergency Provider Emergency Medicine; PCP Physician Assistant Medical
DX: K80.50 Calculus of bile duct without cholangitis or cholecystitis without obstruction (principal); R10.11 Right upper quadrant pain
CPT/HCPCS: 36415; 76705; 80053; 81003; 81015; 83690; 85025; 99284

== ENCOUNTER 2022-12-06 11:14 | Day surgery (SDC) | payer OTHER, SELFPAY ==
[2019-07-14 22:50] VITALS: BMI 35.0
[2022-12-05 14:56] VITALS: BMI 37.5
[2022-12-06] VITALS (9 sets, daily range): BP systolic 128–163; BP diastolic 68–115; PULSE 62–86; RESP 12–18; TEMP 36.1–36.3; O2SAT 91–100; BMI 37.5
--- NOTE | 2022-12-06 | PATH_ITS ---
[facility] Accession Number: [id number] No. of containers..01 Tissue . 01 Material submitted: . gallbladder - GALLBLADDER . 01 Diagnosis: Gallbladder, Cholecystectomy: Chronic cholecystitis, cholesterol polyps, and cholelithiasis. Benign pericystic lymph node. Negative for dysplasia and neoplasia. V 12/09/2022 1344 Local . 01 Electronically signed: . Rosie Wiley MD, Pathologist NPI- [id number] . 01 Gross description: . The specimen is received in formalin labeled with the patient's name, , and gallbladder, and consists of a disrupted gallbladder measuring 5.3 x 4.2 x 1.5 cm. The hepatic surface has a 0.6 cm full-thickness defect. The cystic duct is received closed with a clamp, is inked blue, and a pericystic lymph node candidate is identified measuring 1.1 cm in greatest dimension. The lumen contains dark green mucoid bile and a green crystalline calculus measuring 1.4 cm in greatest dimension. The mucosa is terry and velvety with yellow discoloration and multiple small yellow polyps measuring up to 0.2 cm in greatest dimension. No additional lesions are identified. The adorno average 0.3 cm thick. Dependency Case Manager sections to include the cystic duct margin, intact lymph node candidate, and full-thickness sections with polyps are submitted in cassette A1. ([id number]) /[place] 12/07/2022 1521 Local . 01 Pathologist provided ICD-10: K80.50 . 01 CPT . 981112 Specimen Comment: A courtesy copy of this report has been sent to [phone] Performed at: 01 [facility] [address] [place] [address] [address] [facility], [place], [place] [id number] MD Enio Pisano MD Phone: [phone]
[2022-12-06] MEDS: LACTATED RINGERS 1,000 ML 100 ML IV (12:05)
--- NOTE | 2022-12-06 12:50 | SUR.OPER ---
Supine on padded OR bed, head on pillow, arms secured on padded arm boards at <90 degrees abduction, legs uncrossed, safety belt at thigh, tape over blanket over lower legs.
--- NOTE | 2022-12-06 12:51 | PM.PREOP ---
Pre-operative Note Interval Note History & Physical reviewed/Exam performed by Physician: Yes Changes to H&P: No
[2022-12-06] MEDS: CEFAZOLIN 2 GM/100 ML PREMIX 100 ML IV (13:20)
[2022-12-06] MEDS: BUPIVACAINE 0.5% (PF) 10 ML VIAL 30 ML INJ (13:35)
[2022-12-06] MEDS: ONDANSETRON 4 MG/2 ML INJ IV (14:30)
[2022-12-06] MEDS: HYDROMORPHONE 2 MG INJ IV (14:32)
[2022-12-06] MEDS: OXYCODONE/ACETAMINOPHEN 5/325 TABLET 1 TAB PO (14:34)
--- NOTE | 2022-12-06 14:43 | P.OP_ITS ---
Operative Date/Time/Diagnoses Date of procedure: 12/06/22 Time of procedure: 14:43 Pre-op diagnosis: Biliary colic Post-op diagnosis: same Procedure & Clinicians Procedure: Laparoscopic cholecystectomy Same procedure as scheduled: Yes Indications: 62-year-old woman with symptoms and radiographic findings consistent with biliary colic Surgeon: Po Arteaga Click Yes if Unassisted: Yes Anesthesia Type: General Operative Notes Findings: Chronic cholecystitis. Critical view of safety established Procedure in detail: The patient was placed supine on the table and bilateral lower extremity compression devices were applied. Anesthesia was induced they were intubated with an endotracheal tube and received 2g of Ancef. A time-out was performed. They were prepped and draped in sterile fashion. An infraumbilical incision was made. The fascia was elevated incised and the abdomen was entered atraumatically. A blunt tip 12mm balloon trocar was then inserted, pneumoperitoneum was established and inspection of the abdomen demonstrated no evidence of injury. They were placed head up and right side up and then a 11 mm port was placed high in the epigastrium and two 5mm in the right upper quadrant. The gallbladder was chronically inflamed and consistent with chronic cholecystitis. The gallbladder was grasped by the fundus and retracted over the liver and retracted laterally by the infundibulum. Using electrocautery the lateral plane between the gallbladder and the liver was opened towards the fundus. The gallbladder was then retracted laterally and the medial plane was developed in the same manner. With the gallbladder mobilized the bottom of the cystic plate was visualized. The hepatocystic triangle was meticulosly skeleto nized with blunt dissection of fat and fibrous tissue from both the front and the back. Only two structures were then clearly seen entering the gallbladder the cystic duct and the cystic artery. With the critical view of safety fully established the cystic duct was clipped twice proximally and once distally using the 10 mm Weck hemoclip applied under direct visualization and then sharply divided. The cystic artery was divided in the same fashion. The gallbladder was removed from the liver bed using electro cautery. The liver bed was then inspected for hemostasis and this was achieved. The abdomen was irrigated with sterile saline and inspection was made that showed the clips in good position. The specimen was removed using Endo-Catch. The abdomen was desufflated. The umbilical fascia was closed with 0 Vicryl in a [id number] fashion under direct visualization. Skin incisions were irrigated and closed with 4-0 Monocryl. 30 ml of 0.25% bupivacaine was infiltrated into the subcutaneous tissue of the incisions. The wounds were sealed with Dermabond. Patient emerged from anesthesia was extubated and transferred to recovery in stable condition. The sponge and instrument count at the end of the operation was correct. Complications: none Post-operative Condition: stable Disposition: same day surgery
== END 2022-12-06 15:46 | disposition home or self-care (01) ==
PROVIDERS: PCP Physician Assistant Medical; Referring Provider Surgery; Visit Provider Surgery
PROC: 0FT44ZZ Resection of Gallbladder, Percutaneous Endoscopic Approach (ICD-10-PCS; CPT 47562; principal; 2022-12-06 14:00)
DX: K80.10 Calculus of gallbladder with chronic cholecystitis without obstruction (principal)
CPT/HCPCS: 47562; J0690; J1100; J1170; J1885; J2250; J2405; J2704; J3010

== ENCOUNTER 2022-12-30 04:18 | Emergency (ER) | payer OTHER, SELFPAY ==
[2019-07-14 22:50] VITALS: BMI 35.0
[2022-12-30] VITALS (8 sets, daily range): BP systolic 109–110; BP diastolic 65–68; PULSE 58–74; RESP 16; TEMP 36.6; O2SAT 95–99; BMI 35.6
--- NOTE | 2022-12-30 04:44 | DI.CT.S_ITS ---
PROCEDURE: CT KIDNEY URETER BLADDER (KUB) INDICATIONS: left flank pain TECHNIQUE: Axial sections were acquired from the lung bases to the pubic symphysis. Coronal and sagittal reformats were performed. For radiation dose reduction, the following was used: automated exposure control, adjustment of mA and/or kV according to patient size. COMPARISON: [facility], CT, CT ANGIO CHEST PE, 05/21/2022, 15:10. [facility], US, US ABDOMEN LIMITED, 11/30/2022, 21:32. FINDINGS: Image quality: Excellent. Lung bases: Unremarkable. Heart: No significant findings. URINARY: Right Kidney and ureter: No stones or hydronephrosis. No hydroureter. Small hiatal hernia. Left Kidney and: Question 1 mm stone in the distal left ureter versus pelvic fluid. No stones or hydronephrosis. No hydroureter. Bladder: Normal wall thickness. No stones. ABDOMEN: Liver: Unremarkable. Gallbladder: Surgically removed. Biliary ducts: Unremarkable. Pancreas: Unremarkable. Spleen: Unremarkable. Adrenal Glands: There is a 3.0 x 2.3 cm right adrenal nodule demonstrating CT density -11.6 HU, compatible with a lipid laden adrenal adenoma. Stomach and Bowel: Stomach, small bowel loops, and colon are unremarkable. Diverticulosis without acute diverticulitis. Peritoneum: No abnormal intraperitoneal fluid. No free air. Ventral Wall: No hernia. Abdominal Nodes: No enlarged retroperitoneal or mesenteric lymph nodes. Vessels: Aorta and inferior vena cava are normal in size. PELVIS: Pelvic Organs: Unremarkable. Pelvic Nodes: Unremarkable. Miscellaneous: No inguinal hernias are seen. Bones: Unremarkable. IMPRESSION: 1. Question 1 mm left distal ureteral stone versus pelvic fluid. No hydronephrosis. 2. A 3 cm right adrenal adenoma. 3. Diverticulosis without acute diverticulitis. No significant discrepancy with the tree trimmer helper radiology preliminary report. Dictated by: Carla Graham M.D. on 12/30/2022 at 7:48 Approved by: Carla Graham M.D. on 12/30/2022 at 7:54
--- NOTE | 2022-12-30 04:52 | ED_ITS ---
HPI - Back Pain/Injury General Chief Complaint: Back Pain/Injury Stated Complaint: abd pain lt side, sharp back pain Time Seen by Provider: 12/30/22 04:44 Source: patient History of Present Illness HPI Narrative: Patient 62 old female with recent cholecystectomy on December 06 history of hypothyroid presenting today with left shoulder ache and back pain. She reports that she woke up from sleep with low back pain. She denies any radiation no nausea. And she this left shoulder pain. She reports that when she had her gallbladder she really did not have any nausea or vomiting she only had pain. He is never had a kidney stone and now it is on the left side. She denies any hematuria. She took 2 Tylenol prior to arrival which seems to have kicked in. She also describes his left shoulder ache. No real chest pain or shortness of breath. It is nonreproducible. Due to her recent surgery she has been abiding by the lifting guidelines and not lifting or doing anything heavy but she increased her activity over the last day or so. No fevers or chills Related Data Home Medications Medication Instructions Recorded Confirmed levothyroxine 100 mcg tablet 100 mcg PO DAILY 12/05/22 12/26/22 Previous Rx's Medication Instructions Recorded acetaminophen 325 mg capsule 650 mg PO QID PRN pain #60 caps 12/06/22 (Tylenol) ibuprofen 200 mg tablet 400 mg PO Q6H #60 tabs 12/06/22 tramadol 50 mg tablet 50 mg PO Q6H PRN pain #15 tabs 12/06/22 Allergies Allergy/AdvReac Type Severity Reaction Status Date / Time clavulanic acid Allergy Mild Verified 12/26/22 13:00 [From Augmentin] Review of Systems Review of Systems ROS Unobtainable: All systems reviewed & are unremarkable except as noted in HPI and below Patient History Medical History Anal abscess Hypothyroid Pneumonia due to COVID-19 virus Surgical History History of History of incision and drainage (07/14/19) Hx of carpal tunnel repair Social History marital status: household members: spouse lives independently: Yes occupational status: employed Smoking Status: Never smoker alcohol intake: current substance use type: does not use Smoking Status: Never smoker alcohol intake frequency: holidays/special occasions only Substance Use Type: does not use Exam Initial Vital Signs Initial Vital Signs: Vital Signs Temperature 97.8 F 12/30/22 04:29 Pulse Rate 73 12/30/22 04:29 Respiratory Rate 16 12/30/22 04:29 Blood Pressure 109/65 12/30/22 04:29 Pulse Oximetry 99 12/30/22 04:29 Oxygen Delivery Method Room Air 12/30/22 04:29 GENERAL: Alert pleasant well-appearing 62-year-old female and in no acute distress. HEENT: Head atraumatic,EOMI, pupils reactive, face symmetric, moist mucous membranes CARDIOVASCULAR: Regular rate and rhythm without murmurs, rubs or gallops. RESPIRATORY: Breath sounds equal bilaterally, no wheezes rales or rhonchi. ABDOMEN: Soft, nontender. Normoactive bowel sounds all 4 quadrants. No guarding or rebound. : No CVA tenderness BACK: Lower lumbar back pain reproducible to palpation on the left side EXTREMITIES: Normal range of motion, no clubbing or edema. Neurovascularly intact NEUROLOGICAL: Alert and oriented x4. SKIN: Warm, dry, no laceration, no petechiae, no rashes or lesions. Course Orders Ordered: ED Orders 12/30/22 04:30 Urine Microscopic Stat 12/30/22 04:37 EKG-12 Lead Stat 12/30/22 04:44 CT kidney ureter bladder (KUB) Stat 12/30/22 05:20 Complete Blood Count AUTO DIFF Stat Comprehensive Metabolic Panel Stat Lipase Stat Troponin & CK Cardiac Panel Stat Discontinued Medications Ketorolac Tromethamine (Ketorolac 30 Mg/Ml Vial) 15 mg IV NOW ONE Stop: 12/30/22 04:45 Last Admin: 12/30/22 06:21 Dose: 15 mg Vital Signs Vital signs: Vital Signs - 8 hr 12/30/22 04:29 12/30/22 04:34 12/30/22 04:35 Temperature 97.8 F Pulse Rate 73 70 Respiratory Rate 16 Blood Pressure 109/65 109/65 Pulse Oximetry 99 97 Oxygen Delivery Method Room Air 12/30/22 04:35 12/30/22 05:00 12/30/22 05:30 Temperature Pulse Rate 74 63 58 L Respiratory Rate Blood Pressure Pulse Oximetry 99 99 95 Oxygen Delivery Method 12/30/22 06:00 12/30/22 06:19 12/30/22 06:19 Temperature Pulse Rate 60 64 Respiratory Rate Blood Pressure 110/68 Pulse Oximetry 95 98 Oxygen Delivery Method 12/30/22 06:26 Temperature 98 F Pulse Rate 66 Respiratory Rate 16 Blood Pressure 109/65 Pulse Oximetry 99 Oxygen Delivery Method Room Air MDM - Back Pain/Injury Lab Data 12/30/22 05:20 12/30/22 05:20 Labs: Lab Results 12/30/22 12/30/22 12/30/22 Range/Units 04:30 05:20 05:20 WBC 6.7 (4.5-11.0) X10^3/uL RBC 3.97 L (4.0-5.2) X10^6/uL Hgb 11.4 L (12.0-16.0) g/dL Hct 33.9 L (36-46) % MCV 85.6 (80-100) fL MCH 28.7 (26-34) PG MCHC 33.6 (30-36) % RDW 14.8 (11.6-14.8) % Plt Count 226 (150-400) X10^3/uL Neut % (Auto) 48.8 L (50-75) % Lymph % (Auto) 33.7 (25-40) % [place] % (Auto) 7.9 (3-14) % Eos % (Auto) 8.6 H (2-4) % Baso % (Auto) 1.0 (0-2) % Neut # (Auto) 3300 (0613-6825) /uL Lymph # (Auto) 2300 (3139-5824) /uL [place] # (Auto) 500 (0-900) /uL Eos # (Auto) 600 H (0-450) /uL Baso # (Auto) 100 (0-100) /uL Sodium 140 (137-145) mmol/L Potassium 4.1 (3.4-5.1) mmol/L Chloride 108 H (98-107) mmol/L Carbon Dioxide 26 (22-32) mmol/L BUN 20 H (7-17) mg/dL Creatinine 0.54 (0.52-1.04) mg/dL Estimated GFR > 60 (>60) mL/min BUN/Creatinine Ratio 37.0 H (6-22) Glucose 106 (80-110) mg/dL Calcium 9.1 (8.4-10.2) mg/dL Total Bilirubin 0.3 (0.2-1.3) mg/dL AST 40 H (14-36) IU/L ALT 62 H (<35) IU/L Alkaline Phosphatase 121 (38-126) U/L Total Creatine Kinase (30-135) U/L Troponin I (0.01-0.034) ng/mL Total Protein 9.6 H (6.3-8.2) g/dL Albumin 4.0 (3.5-5.0) g/dL Globulin 5.6 H (1.7-4.1) g/dL Albumin/Globulin Ratio 0.7 L (1.0-2.8) Lipase 229 (23-300) U/L Urine RBC 0-1/hpf (0-5/HPF) Urine WBC 0-1/hpf (0-5/HPF) Ur Squamous Epith Cells None seen (0-5/HPF) Urine Bacteria None seen (None) Ur Culture Indicated? Cult not indicated 12/30/22 Range/Units 05:20 WBC (4.5-11.0) X10^3/uL RBC (4.0-5.2) X10^6/uL Hgb (12.0-16.0) g/dL Hct (36-46) % MCV (80-100) fL MCH (26-34) PG MCHC (30-36) % RDW (11.6-14.8) % Plt Count (150-400) X10^3/uL Neut % (Auto) (50-75) % Lymph % (Auto) (25-40) % [place] % (Auto) (3-14) % Eos % (Auto) (2-4) % Baso % (Auto) (0-2) % Neut # (Auto) (5883-2658) /uL Lymph # (Auto) (8115-4148) /uL [place] # (Auto) (0-900) /uL Eos # (Auto) (0-450) /uL Baso # (Auto) (0-100) /uL Sodium (137-145) mmol/L Potassium (3.4-5.1) mmol/L Chloride (98-107) mmol/L Carbon Dioxide (22-32) mmol/L BUN (7-17) mg/dL Creatinine (0.52-1.04) mg/dL Estimated GFR (>60) mL/min BUN/Creatinine Ratio (6-22) Glucose (80-110) mg/dL Calcium (8.4-10.2) mg/dL Total Bilirubin (0.2-1.3) mg/dL AST (14-36) IU/L ALT (<35) IU/L Alkaline Phosphatase (38-126) U/L Total Creatine Kinase 47 (30-135) U/L Troponin I < 0.012 (0.01-0.034) ng/mL Total Protein (6.3-8.2) g/dL Albumin (3.5-5.0) g/dL Globulin (1.7-4.1) g/dL Albumin/Globulin Ratio (1.0-2.8) Lipase (23-300) U/L Urine RBC (0-5/HPF) Urine WBC (0-5/HPF) Ur Squamous Epith Cells (0-5/HPF) Urine Bacteria (None) Ur Culture Indicated? Urine Dip Bedside Urine Glucose Negative Bedside Urine Bilirubin - Negative Bedside Urine Ketone - Negative Urine Specific [place] 1.025 Bedside Urine Occult Blood + Bedside Urine pH 6.0 Bedside Urine Protein - Negative Bedside Urine Urobilinogen - Negative Bedside Urine Nitrite - Negative Bedside Urine Leukocytes - Negative Esterase Imaging Data CT scan - abdomen/pelvis: Radiologist's Impression: Preliminary report questionable 1 mm nonobstructing left distal ureteral calculus versus calcified pelvic full female with. May need CT IVP. No evidence of diverticulitis obstruction or appendicitis. Right adrenal adenoma a denoma ECG Data Interpretation: Sinus rhythm rate 57 NH interval 170 QRS 88 QTC 426 T-wave inversions lead 3, V2 and V3 no ST elevations or depressions. New T-wave inversion in lead 3 from previous EKG in 2011 but precordial T-wave inversions V2 and V3 are similar to prior MDM Narrative Medical decision making narrative: 62-year-old female presents today with left lower back pain and some left shoulder pain. She is found to have hematuria pain is controlled with Toradol and Tylenol. CT confirms a very small punctate stone likely causing her pain. I think her left shoulder is not related. It is not really reproducible. She does have T-wave inversions but no chest pain negative troponin, I think unrelated today. Pain in her back is much better after Toradol. Blood work is reassuring without leukocytosis anemia electrolyte abnormality or DAVID. Urinalysis does not show any sign of infection. Discharge Plan Departure Patient Disposition: Home Clinical Impression: Kidney stone on left side Instructions: DI for Kidney Stones Activity Restrictions/Additional Instructions: *You have been diagnosed with left-sided kidney stone *What to do: They kidney stone on the left side is 1 mm anticipate that you pass this very easily. Stay hydrated. You can attempt to catch the kidney stone but it may be too small. *Continue to take medications as directed Motrin 600 mg every 6 hours if needed for [id number] pain. Please way 8 hours until your next dose Take pain medication as previously prescribed *Follow up with your primary care provider in 2-3 days or call [phone] *Return to ER if you should have increased pain nausea vomiting fever or any new, worsening or concerning symptoms Prescriptions: No Action levothyroxine 100 mcg tablet 100 mcg PO DAILY tramadol 50 mg tablet 50 mg PO Q6H PRN (Reason: pain) Qty: 15 0RF ibuprofen 200 mg tablet 400 mg PO Q6H Qty: 60 0RF acetaminophen [Tylenol] 325 mg capsule 650 mg PO QID PRN (Reason: pain) Qty: 60 0RF Referrals: Claudia Ely PA-C [Primary Care Provider] - Stand Alone Forms: Patient Portal/API
[2022-12-30 05:09] LABS: Bacteria Urine None Seen; Culture Indicated Urine Cult Not Indicated; RBC Urine 0-1/HPF (0-5/HPF); Squamous Epithelial Cell Urine None Seen (0-5/HPF); WBC Urine 0-1/HPF (0-5/HPF)
[2022-12-30 05:37] LABS: Add Manual Diff / Slide Review NO; Basophils Absolute Auto 100 /uL (0-100); Eosinophils Absolute Auto 600 /uL (0-450); Eosinophils Percent Auto 8.6 % (2-4); Hematocrit 33.9 % (36-46); Hemoglobin 11.4 g/dL (12.0-16.0); Lymphocytes Absolute Auto 2300 /uL (1100-4500); Lymphocytes Percent Auto 33.7 % (25-40); Mean Corpuscular HGB Conc 33.6 % (30-36); Mean Corpuscular Hemoglobin 28.7 PG (26-34); Mean Corpuscular Volume 85.6 fL (80-100); Monocytes Absolute Auto 500 /uL (0-900); Monocytes Percent Auto 7.9 % (3-14); Neutrophils Absolute Auto 3300 /uL (1500-7000); Neutrophils Percent Auto 48.8 % (50-75); Platelet Count 226 X10^3/uL (150-400); Red Blood Cell Count 3.97 X10^6/uL (4.0-5.2); Red Cell Distribution Width 14.8 % (11.6-14.8); White Blood Cell Count 6.7 X10^3/uL (4.5-11.0)
[2022-12-30 05:44] LABS: Creatine Kinase 47 U/L (30-135)
[2022-12-30 05:57] LABS: Troponin I < 0.012 ng/mL (0.01-0.034)
[2022-12-30 06:00] LABS: Alanine Aminotransferase 62 IU/L (<35); Albumin Globulin Ratio 0.7 (1.0-2.8); Alkaline Phosphatase 121 U/L (38-126); Aspartate Aminotransferase 40 IU/L (14-36); Bilirubin Total 0.3 mg/dL (0.2-1.3); Blood Urea Nitrogen 20 mg/dL (7-17); Calcium 9.1 mg/dL (8.4-10.2); Carbon Dioxide 26 mmol/L (22-32); Chloride 108 mmol/L (98-107); Estimated Glomerular Filt Rate > 60 mL/min (>60); Globulin 5.6 g/dL (1.7-4.1); Glucose 106 mg/dL (80-110); HEMOLYSIS 27 (0-50); Lipase 229 U/L (23-300); Potassium 4.1 mmol/L (3.4-5.1); Sodium 140 mmol/L (137-145); Total Protein 9.6 g/dL (6.3-8.2)
[2022-12-30] MEDS: KETOROLAC 30 MG/ML VIAL 15 MG IV (06:21)
== END 2022-12-30 06:27 | disposition home or self-care (01) ==
PROVIDERS: Emergency Provider Emergency Medicine; PCP Physician Assistant Medical
DX: N20.0 Calculus of kidney (principal); R10.9 Unspecified abdominal pain
CPT/HCPCS: 36415; 74176; 80053; 81003; 81015; 82550; 83690; 84484; 85025; 93005; 93010; 96374; 99284; J1885

== ENCOUNTER → 2023-01-19 08:44 | Outpatient (CLI) | payer OTHER, SELFPAY ==
[2019-07-14 22:50] VITALS: BMI 35.0
--- NOTE | 2023-01-19 08:45 | DI.MRI.S_ITS ---
PROCEDURE: MR LUMBAR SPINE WO CON INDICATIONS: Wedge compression fracture of T11-T12 and L2 TECHNIQUE: Noncontrast sagittal T1 spin echo and T2 fast echo, sagittal STIR, and T2 fast spin echo through the lumbar spine. In cases with scoliosis, additional coronal T2 fast spin echo may be performed. COMPARISON: [facility], CR, XR THORACOLUMBAR SPINE 2 VIEWS, 01/16/2023, 10:20. FINDINGS: Image quality: Excellent. Alignment and Curvature: There is normal bony alignment. Bone Marrow: Stable compression deformities of L2 with 25-50 percent height loss and L3 with less than 25 percent height loss. There is no significant retropulsion. Diffusely decreased marrow signal on T1. Spinal Cord: Conus medullaris terminates at the L1 level. Visualized cord demonstrates normal signal and size. Paraspinous Soft Tissues: No paravertebral masses. T12-L1: Normal appearance. L1-L2: Normal appearance. L2-L3: Normal appearance. L3-L4: Minimal posterior disc bulge. Facet arthropathy and thickening of ligamentum flavum. No central canal or neural foraminal stenosis. L4-L5: Disc desiccation and small posterior disc bulge with an annular tear. Facet arthropathy and thickening ligamentum flavum. No central canal stenosis or neural foraminal stenosis. L5-S1: A small central disc protrusion. Facet arthropathy. No central canal or neural foraminal stenosis. IMPRESSION: 1. Stable appearance of compression deformities of the L2 and L3 vertebral body compared to x-ray 01/16/2023. Minimal edema within the L2 vertebral body suggesting a subacute etiology. 2. Again seen diffusely decreased marrow signal on T1 which may represent an infiltrative process, recommend correlation with lab values. 3. Mild degenerative changes of the lumbar spine without central canal or neural foraminal stenosis. Dictated by: Merritt Lebron M.D. on 01/20/2023 at 8:20 Approved by: Merritt Lebron M.D. on 01/20/2023 at 8:25
--- NOTE | 2023-01-19 08:45 | DI.MRI.S_ITS ---
PROCEDURE: MR THORACIC SPINE WO CON INDICATIONS: Wedge compression fracture of T11-T12 and L2 TECHNIQUE: Noncontrast sagittal T1 spine echo and T2 fast spin echo, sagittal STIR, and T2 fast spin echo through the thoracic spine. COMPARISON: [facility], CT, CT KIDNEY STONE ED LOW DOSE, 01/05/2023, 13:56. FINDINGS: Image quality: Excellent. Alignment and Curvature: There is normal bony alignment. Bone Marrow: Compression deformity of the T11 vertebral body with less than 25 percent height loss. There is minimal retropulsion without central canal narrowing. Compression deformity of the T12 vertebral body with 50-75 percent height loss. Minimal retropulsion without central canal narrowing. There is minimal edema within the vertebral bodies. No new compression deformities. Diffusely decreased marrow signal on T1. Spinal Cord: Visualized spinal cord is normal in size and signal. Paraspinous Soft Tissues: No paravertebral masses. Miscellaneous: On axial images, central canal and foramina appear widely patent at all scanned levels. IMPRESSION: 1. Similar appearance of compression deformities of the T11 and T12 vertebral bodies compared to x-ray 01/16/2023. There is minimal retropulsion without canal narrowing. Minimal edema within the vertebral bodies suggesting a subacute etiology. 2. Diffusely decreased marrow signal which may represent an infiltrative process, recommend correlation with labs. Dictated by: Merritt Lebron M.D. on 01/20/2023 at 8:11 Approved by: Merritt Lebron M.D. on 01/20/2023 at 8:20
== END ==
PROVIDERS: PCP Physician Assistant Medical; Referring Provider Physician Assistant Surgical; Visit Provider Physician Assistant Surgical
DX: S22.080A Wedge compression fracture of T11-T12 vertebra, initial encounter for closed fracture (principal); S32.020A Wedge compression fracture of second lumbar vertebra, initial encounter for closed fracture; M47.816 Spondylosis without myelopathy or radiculopathy, lumbar region; M47.817 Spondylosis without myelopathy or radiculopathy, lumbosacral region
CPT/HCPCS: 72146; 72148

== ENCOUNTER → 2023-07-14 15:58 | Outpatient (CLI) | payer OTHER, SELFPAY ==
[2019-07-14 22:50] VITALS: BMI 35.0
--- NOTE | 2023-07-14 16:00 | DI.MRI.S_ITS ---
PROCEDURE: MR LUMBAR SPINE WO/W CON INDICATIONS: Multiple myeloma not having achieved remission TECHNIQUE: Noncontrast sagittal T1 spin echo and T2 fast echo, sagittal STIR, and T2 fast spin echo through the lumbar spine. In cases with scoliosis, additional coronal T2 fast spin echo may be performed. COMPARISON: [facility], MR, MR LUMBAR SPINE WITHOUT CONTRAST, 02/20/2023, 16:14. [facility], MR, MR LUMBAR SPINE WO CON, 01/19/2023, 9:10. FINDINGS: Image quality: Excellent. Alignment and Curvature: There is normal bony alignment. Bone Marrow: Diffuse heterogeneity of the marrow with decreased T1 signal, STIR hyperintensity and enhancement. Multiple compression deformities throughout the visualized thoracic spine and lumbar spine. For example there are mild compression deformities of T9, moderate of T11, severe of T12, mild of L1, moderate of L2, severe of L3 and mild of L4 on L5. Findings are progressed compared to 01/19/2023 Spinal Cord: Conus medullaris terminates at the L1-L2 level. Visualized cord demonstrates normal signal and size. Paraspinous Soft Tissues: Indeterminate right adrenal nodule measuring 2.7 cm. IMPRESSION: Extensive involvement of the lumbar spine with multiple compression deformities as described above. This is significantly progressed compared to prior. Dictated by: Merritt Lebron M.D. on 07/14/2023 at 17:05 Approved by: Merritt Lebron M.D. on 07/14/2023 at 17:08
== END ==
PROVIDERS: PCP Physician Assistant Medical; Referring Provider Internal Medicine; Visit Provider Internal Medicine
DX: C90.00 Multiple myeloma not having achieved remission (principal); M43.8X5 Other specified deforming dorsopathies, thoracolumbar region; E27.9 Disorder of adrenal gland, unspecified
CPT/HCPCS: 72158; A9579